=== PATIENT | male | born 1950 | race Caucasian/White ===

== ENCOUNTER → 2017-05-13 | Outpatient (CLI) | payer MEDICARE, OTHER ==
[2017-05-13 12:35] LABS: ALT 102 U/L (21-72); AST 114 U/L (17-59); Alkaline Phosphatase 77 U/L (38-126); Anion Gap 13 mmol/L; Bilirubin, Delta 1.3 mg/dL (0.0-0.2); Blood Urea Nitrogen 15 mg/dL (9-20); Calcium 9.7 mg/dL (8.4-10.2); Carbon Dioxide 22 mmol/L (22-30); Chloride 108 mmol/L (98-107); Cholesterol 170 mg/dL (<200); Glucose 111 mg/dL (74-99); HDL Cholesterol 44 mg/dL (40-60); Non-African American GFR(MDRD) >60 (>60 ml/min/1.73 sqM); Sodium 143 mmol/L (137-145); Total Bilirubin 2.3 mg/dL (0.2-1.3); Total Protein 9.2 g/dL (6.3-8.2)
[2017-05-13 12:38] LABS: Basophils # (A) 0.1 k/uL (0-0.2); Basophils % (A) 1 %; CHCM 33.6; Eosinophils # (A) 0.2 k/uL (0-0.7); Eosinophils % (A) 5 %; HCT 50.7 % (39.0-53.0); HDW 2.57; HGB 16.8 gm/dL (13.0-17.5); Luc # (Auto) 0.17; Luc % (Auto) 4; Lymphocytes # (A) 1.8 k/uL (1.0-4.8); Lymphocytes % (A) 42 %; MCH 30.7 pg (25.0-35.0); MCHC 33.1 g/dL (31.0-37.0); MCV 92.8 fL (80.0-100.0); Mean Platelet Volume 7.3; Monocytes # (A) 0.3 k/uL (0-1.0); Monocytes % (A) 8 %; Neutrophils # (A) 1.8 k/uL (1.3-7.7); Neutrophils % (A) 40 %; RBC 5.46 m/uL (4.30-5.90); RDW 12.8 % (11.5-15.5); WBC 4.3 k/uL (3.8-10.6); WBC (Perox) 4.25
[2017-05-13 12:40] LABS: Potassium 5.1 mmol/L (3.5-5.1)
[2017-05-16 13:41] LABS: LOG HCV IU/mL 6.64 (<1.08)
== END | disposition home or self-care (01) ==
LOC: LABWHC1 11:21
PROVIDERS: ATTEND Physician Assistant
DX: B18.2 Chronic viral hepatitis C (principal)
CPT/HCPCS: 36415; 80053; 80061; 82248; 85025; 87522

== ENCOUNTER → 2017-07-11 | Outpatient (CLI) | payer MEDICARE, OTHER ==
--- NOTE | 2017-07-11 14:59 | US ---
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 gen abd discomfort at times, larger habitus EXAM MEASUREMENTS: Liver Length: 15.2 cm CBD: 1.8 cm Right Kidney: 11.5 x 4.3 x 5.3 cm Some exam limitations due to larger habitus and overlying bowel gas. Pancreas: diffusely heterogeneous, limited due to overlying bowel gas Liver: Increased attenuation normal hepatopedal blood flow seen. Gallbladder: Surgically absent CBD: dilated, extrahep shukri dilation Right Kidney: wnl Pancreas is suboptimally seen due to body habitus and shadowing from overlying bowel gas, visualized portion is heterogeneous. Visualized liver remains slightly heterogeneous slightly hyperechoic in marco earance. Evaluation for focal masses suboptimal due to the heterogeneity. No intrahepatic ductal dila tation is seen. There is stable moderate extrahepatic biliary dilatation. Gallbladder surgically abse nt. Pancreas is seen better towards end of study. No suspicious ductal dilatation is seen. IMPRESSION: Overall stable findings, persistent heterogeneous hyperechoic appearance of liver likely on basis of known hepatocellular disease. Stable moderate extrahepatic biliary dilatation without ericka picious new intrahepatic biliary dilatation noted.
== END ==
LOC: RADUSWWP 14:00
DX: K76.89 Other specified diseases of liver (principal)
CPT/HCPCS: 76705

== ENCOUNTER → 2017-10-14 | Outpatient (CLI) | payer MEDICARE, OTHER ==
--- NOTE | 2017-10-16 12:58 | MR ---
EXAMINATION TYPE: MR lumbar spine wo con DATE OF EXAM: 10/14/2017 COMPARISON: Prior MRI lumbar spine August 27, 2010. HISTORY: Low Back pain, Spondylosis without myelopathy or radiculopathy per order. Low back pain for 10 years per patient. TECHNIQUE: Multiplanar, multisequence imaging of the lumbar spine is performed without IV contrast. FINDINGS: Sagittal images of the lumbar spine show vertebral body heights and alignment to appear sat isfactory. Multilevel disc desiccation is redemonstrated most prominent in lower lumbar levels. There is mild disc space L4-L5 level as well as disc space heights are fairly well-maintained. No large po sterior disc herniations are seen on sagittal images. The conus medullaris is stable in position end ing at superior L2 level. Through suspicious signal is seen. The bone marrow signal intensity remains overall slightly heterogeneous. There is mild to moderate multilevel anterior spurring seen most pro minent lower lumbar levels. Axial images show the T12-L1, L1-L2, and L2-L3 levels all to remain within normal limits. Axial images at L3-L4 level demonstrates mild broad disc bulge but spinal canal is preserved, there i s mild right-sided anterior inferior neuroforaminal narrowing. Left-sided neural foramen is patent. N o significant change from prior study is seen. Axial images at L4-L5 levels with broad-based posterior disc protrusion mildly effacing the anterior thecal sac and causing mild right greater than left bilateral anterior inferior neural foraminal narr owing. There is mild facet arthropathy bilaterally. There is no significant progression from prior st udy. Axial images at L5-S1 level shows moderate facet degenerative changes bilaterally. Spinal canal is pr eserved. Bilateral neural foramina remain patent. There is more prominent facet arthropathy at this l evel versus prior study. No suspicious retroperitoneal findings are seen. IMPRESSION: Multilevel degenerative changes in the mid to lower lumbar spine as detailed above, only significant interval change is increasing facet arthropathy at lumbosacral junction.
== END | disposition home or self-care (01) ==
LOC: RADMRIMAIN 16:26
PROVIDERS: ATTEND Specialist
DX: M47.816 Spondylosis without myelopathy or radiculopathy, lumbar region (principal); M46.97 Unspecified inflammatory spondylopathy, lumbosacral region
CPT/HCPCS: 72148

== ENCOUNTER → 2017-10-27 | Outpatient (CLI) | payer MEDICARE, OTHER ==
[2017-10-27 12:29] VITALS: BP 162/105; PULSE 67; RESP 16
--- NOTE | 2017-10-28 13:25 | P.PN ---
Subjective Progress Note Date: 10/27/17 This is follow-up visit for this patient with a history of severe and chronic low back pain , he was seen a few weeks ago and we ordered MRI of the lumbar spine and patient came for follow up visit, he reported that his pain is localized mostly in the low back area and he had some pain in the mid back also , pain is constant and increases with any activity , denies any motor or sensory deficit he denies any fever or night sweats he denies any change in the bowel movement or urination , MRI report was reviewed and it showed patient had L3 4 L4 5 and L5-S1 Degenrative disc disease and multilevel lumbar facet degeneration Objective - Vital Signs Vital signs: Vital Signs Temp Pulse 67 10/27/17 12:21 Resp 16 10/27/17 12:21 BP 162/105 10/27/17 12:21 Pulse Ox 98 10/27/17 12:21 Intake & Output 10/27/17 10/28/17 10/28/17 18:59 06:59 18:59 Weight 104.326 kg - Exam Physical Examinations : 1-Constitutiona : Cooperative , not in acute distress . 2-HEENT : nech ; supple , no Lymphadenopathy , normal thyroid size . eyes : no ptosis , no icterus, no photophobia . ENT : normal of hearing , normal oropharynx , no Thrush . 3- Respiratory : Chest clear to auscultations Bilaterally , no wheezing , no Rhonchi . 4- Cardiovascular : regular rate and rhythem , S1 , S2 , no S3 , no S4. 5- Gastrointestinal : abdomen soft no tenderness , bowel sounds positive all four quadrents , no organomegally . 6- Genitourinary : Defferred . 7- neurologic : Cranial nerve II to XII intact , no focal neurological deffecit . 8-psychatric : alert , oriented X 3 , appropriate affect , intact judgment and insight . 9-Lymphatic : no Lymphadenopathy . 10- musculoskeltal : cervical spine = motor stregnth in the deltoid and biceps, Lasix spine = total trigger point identified in the thoracic paravertebral muscles . Lumber spine = normal moter stegnth lower extremities ,thigh and legs .5/5 deep tendon reflexes : normal Knee Jerk , normal ankle Jerk . lumber facet Loading Test positive Multiple trigger points identified in the lumbar paravertebral muscles Assessment and Plan Plan: Assessment and plan= chronic low back pain secondary to lumbar degenerative disc disease , lumbar spondylosis with lumbar facet arthropathy , myofascial pain syndrome thoracic and lumbar area Patient was given prescription for a muscle relaxant Zanaflex 4 mg twice a day and Mobic 7.5 mg twice a day , he refused to take these medication he reported that he preferred to have norco , and I explained to the patient that Howe with muscular pain and it will not treat the cause of the pain, he refused to take the prescriptions for the medications mentioned above. Also I explained to the patient the option of doing diagnostic medial branch block and possible radiofrequency patient refused to have, as he is concerned about possible complications , also I discussed with the patient the option of doing trigger point injection, to target the myofascial component of his thoracic and lumbar area and he agreed to proceed with the trigger point injections, patient will be scheduled to have trigger points injections thoracic and lumbar paravertebral muscles Time with Patient: Less than 30
== END | disposition home or self-care (01) ==
LOC: PNWHC3 12:09
PROVIDERS: ATTEND Specialist
DX: G89.29 Other chronic pain (principal); M51.36 Other intervertebral disc degeneration, lumbar region; M47.816 Spondylosis without myelopathy or radiculopathy, lumbar region; M46.96 Unspecified inflammatory spondylopathy, lumbar region; M79.1 Myalgia; Z79.1 Long term (current) use of non-steroidal anti-inflammatories (NSAID); Z79.899 Other long term (current) drug therapy
CPT/HCPCS: 99211

== ENCOUNTER → 2017-10-28 | Outpatient (CLI) | payer MEDICARE, OTHER ==
[2017-10-28 14:46] LABS: HCT 46.8 % (39.0-53.0); HGB 15.2 gm/dL (13.0-17.5); MCH 30.4 pg (25.0-35.0); MCHC 32.5 g/dL (31.0-37.0); MCV 93.5 fL (80.0-100.0); Mean Platelet Volume 7.8; Platelet Count 207 k/uL (150-450); RDW 13.6 % (11.5-15.5); WBC 5.5 k/uL (3.8-10.6)
[2017-10-28 14:49] LABS: ALT 32 U/L (21-72); AST 25 U/L (17-59); Albumin 4.8 g/dL (3.5-5.0); Alkaline Phosphatase 59 U/L (38-126); Anion Gap 14 mmol/L; Bilirubin, Delta 0.3 mg/dL (0.0-0.2); Bilirubin,Unconjugated 0.3 mg/dL (0.0-1.1); Blood Urea Nitrogen 20 mg/dL (9-20); Calcium 9.7 mg/dL (8.4-10.2); Carbon Dioxide 22 mmol/L (22-30); Chloride 106 mmol/L (98-107); Glucose 119 mg/dL (74-99); Potassium 4.3 mmol/L (3.5-5.1); Sodium 142 mmol/L (137-145); Total Bilirubin 0.6 mg/dL (0.2-1.3); Total Protein 7.9 g/dL (6.3-8.2)
[2017-10-28 16:41] LABS: Band Neutrophils % 2 %; Eosinophils # (M) 0.11 k/uL (0-0.7); Lymphocytes # (M) 2.09 k/uL (1.0-4.8); Monocytes # (M) 0.17 k/uL (0-1.0); Neutrophils % (M) 55 %; Nucleated Red Blood Cells 0 /100 WBC (0-0); Total Cells Counted 100
[2017-10-31 11:02] LABS: Hepatits C Virus RNA Not detected (Not detected); Hepatits C Virus RNA, Quant <12 IU/mL (<12); LOG HCV IU/mL <1.08 (<1.08)
== END | disposition home or self-care (01) ==
LOC: LABWHC1 14:13
PROVIDERS: ATTEND Physician Assistant
DX: B18.2 Chronic viral hepatitis C (principal); I10 Essential (primary) hypertension
CPT/HCPCS: 36415; 80053; 82248; 85027; 87522

== ENCOUNTER 2017-11-24 22:04 | Emergency (ER) | payer MEDICARE, OTHER ==
[2017-11-24 22:12] VITALS: BP 157/88; PULSE 69; RESP 20; TEMP 98.3
--- NOTE | 2017-11-24 22:28 | ED ---
Lower Extremity Injury HPI - General Chief Complaint: Extremity Injury, Lower Stated Complaint: Foot Pain Time Seen by Provider: 11/24/17 22:12 Source: patient, RN notes reviewed, old records reviewed Mode of arrival: wheelchair Limitations: no limitations - History of Present Illness Initial Comments: This patient is a 67-year-old male with a chief complaint of left foot and ankle pain after slipping off ladder step and twisting foot today. Patient reports it is painful to bear weight over leg. Patent reports he has no previous injury to the foot or ankle. No other injury related to the fall. Patient reports no head injury or LOC. - Related Data Home Medications Medication Instructions Recorded Confirmed Lisinopril 40 mg PO DAILY 09/13/16 11/24/17 Metoprolol Tartrate [Lopressor] 50 mg PO DAILY 09/13/16 11/24/17 amLODIPine [Norvasc] 5 mg PO DAILY 09/13/16 11/24/17 Zolpidem Tartrate [Ambien] 5 mg PO HS PRN 09/14/17 11/24/17 Previous Rx's Medication Instructions Recorded Ibuprofen [Motrin] 600 mg PO Q8HR PRN #20 tab 11/24/17 Allergies Allergy/AdvReac Type Severity Reaction Status Date / Time No Known Allergies Allergy Verified 11/24/17 22:11 Review of Systems ROS Statement: Those systems with pertinent positive or pertinent negative responses have been documented in the HPI. ROS Other: All systems not noted in ROS Statement are negative. Past Medical History Past Medical History: Hypertension, Liver Disease Additional Past Medical History / Comment(s): Hepatits B & C(current tx for C) , hx migraines, herniated and ruptured disks, History of Any Multi-Drug Resistant Organisms: None Reported Past Surgical History: Cholecystectomy Past Anesthesia/Blood Transfusion Reactions: No Reported Reaction Past Psychological History: No Psychological Hx Reported Smoking Status: Current every day smoker Past Alcohol Use History: None Reported Past Drug Use History: None Reported - Past Family History Mother Family Medical History: No Reported History General Exam - General Exam Comments Initial Comments: This is a 67 year old male, no distress. Limitations: no limitations General appearance: alert, in no apparent distress Head exam: Present: atraumatic, normocephalic, normal inspection Eye exam: Present: normal appearance, PERRL, EOMI. Absent: scleral icterus, conjunctival injection, periorbital swelling ENT exam: Present: normal exam, mucous membranes moist Neck exam: Present: normal inspection. Absent: tenderness, meningismus, lymphadenopathy Respiratory exam: Present: normal lung sounds bilaterally. Absent: respiratory distress, wheezes, rales, rhonchi, stridor GI/Abdominal exam: Present: soft, normal bowel sounds. Absent: distended, tenderness, guarding, rebound, rigid Extremities exam: Present: normal inspection, full ROM, normal capillary refill. Absent: tenderness, pedal edema, joint swelling, calf tenderness Left Knee exam: Present: normal inspection, full ROM Lower Leg exam: Present: normal inspection, full ROM Ankle exam: Present: normal inspection, full ROM, tenderness (tenderness over fourth adn fifth metatarsal. ), swelling Foot/Toe exam: Present: normal inspection, full ROM, tenderness, ecchymosis. Absent: swelling Neurovascular tendon exam: Present: no vascular compromise Gait: observed and normal Back exam: Present: normal inspection Neurological exam: Present: alert, oriented X3, CN II-XII intact Psychiatric exam: Present: normal affect, normal mood Skin exam: Present: warm, dry, intact, normal color. Absent: rash Course Vital Signs 11/24/17 22:09 Temperature 98.3 F Pulse Rate 69 Respiratory 20 Rate Blood Pressure 157/88 O2 Sat by Pulse 96 Oximetry Medical Decision Making - Medical Decision Making This is a 67-year-old male presents emergency department with after stepping down the steps. No other injuries related to the fall. Patient x-rays review negative for any acute process. He does have some minor swelling and tenderness. Given an VELASQUEZ wrap. He will be discharged the crutches. All questions were answered and return parameters discussed. Discussed followuing up with PCP and ortho. - Radiology Data Radiology results: report reviewed xray of foot and ankle are negative for any fractures. Disposition Clinical Impression: Sprain of left foot, Ankle sprain Disposition: HOME SELF-CARE Condition: Good Instructions: Ankle Sprain (ED) Additional Instructions: Patient advised to rest, ice, and elevate the ankle. Wear the Velasquez wrap as directed. Patient should ambulate with crutches. Follow-up with primary care provider or orthopedic if symptoms are continued persist after 3-4 days. Prescriptions: Ibuprofen [Motrin] 600 mg PO Q8HR PRN #20 tab PRN Reason: Pain Referrals: Munira Mcelroy MD [Primary Care Provider] - 1-2 days Time of Disposition: 22:40
--- NOTE | 2017-11-24 22:30 | XR ---
EXAMINATION TYPE: XR ankle complete LT DATE OF EXAM: 11/24/2017 COMPARISON: NONE HISTORY: Twisted foot pain TECHNIQUE: 3 views FINDINGS: Ankle mortise is anatomic. I see no fracture nor dislocation. There is mild spurring at the talonavicular joint. There are small plantar and Achilles calcaneal spurs. IMPRESSION: There are some degenerative changes. No fracture seen.
--- NOTE | 2017-11-24 22:32 | XR ---
EXAMINATION TYPE: XR foot complete LT DATE OF EXAM: 11/24/2017 COMPARISON: NONE HISTORY: Foot pain TECHNIQUE: 3 views FINDINGS: Metatarsals appear intact. I see no fracture nor dislocation. There is mild calcaneal spurr ing. There are no erosions. IMPRESSION: No acute abnormality of the left foot.
== END 2017-11-24 23:02 | disposition home or self-care (01) ==
LOC: EC 22:04
DX: S93.402A Sprain of unspecified ligament of left ankle, initial encounter (principal); S93.602A Unspecified sprain of left foot, initial encounter; I10 Essential (primary) hypertension; F17.200 Nicotine dependence, unspecified, uncomplicated; Z86.19 Personal history of other infectious and parasitic diseases; Z79.899 Other long term (current) drug therapy; X50.1XXA Overexertion from prolonged static or awkward postures, initial encounter; Y92.89 Other specified places as the place of occurrence of the external cause
CPT/HCPCS: 99284

== ENCOUNTER → 2018-03-17 | Outpatient (CLI) | payer MEDICARE, OTHER ==
[2018-03-17 14:26] LABS: Basophils % (A) 1 %; Eosinophils # (A) 0.4 k/uL (0-0.7); Eosinophils % (A) 9 %; HGB 14.4 gm/dL (13.0-17.5); Lymphocytes # (A) 1.6 k/uL (1.0-4.8); Lymphocytes % (A) 35 %; MCH 30.3 pg (25.0-35.0); MCHC 33.5 g/dL (31.0-37.0); MCV 90.4 fL (80.0-100.0); Mean Platelet Volume 7.2; Monocytes # (A) 0.3 k/uL (0-1.0); Monocytes % (A) 8 %; Neutrophils # (A) 1.9 k/uL (1.3-7.7); Neutrophils % (A) 43 %; Platelet Count 195 k/uL (150-450); RBC 4.76 m/uL (4.30-5.90); RDW 13.1 % (11.5-15.5); WBC 4.5 k/uL (3.8-10.6)
[2018-03-17 14:36] LABS: ALT 33 U/L (21-72); AST 31 U/L (17-59); Albumin 4.5 g/dL (3.5-5.0); Alkaline Phosphatase 65 U/L (38-126); Anion Gap 12 mmol/L; Blood Urea Nitrogen 30 mg/dL (9-20); Calcium 9.3 mg/dL (8.4-10.2); Carbon Dioxide 27 mmol/L (22-30); Chloride 100 mmol/L (98-107); Cholesterol 139 mg/dL (<200); Glucose 104 mg/dL (74-99); HDL Cholesterol 43 mg/dL (40-60); LDL Cholesterol,Calculated 83 mg/dL (0-99); Potassium 4.7 mmol/L (3.5-5.1); Sodium 139 mmol/L (137-145); Total Bilirubin 0.7 mg/dL (0.2-1.3); Total Protein 7.3 g/dL (6.3-8.2); Triglycerides 66 mg/dL (<150)
[2018-03-17 15:06] LABS: PSA Annual Screen 0.92 ng/mL (0.00-4.00)
== END | disposition home or self-care (01) ==
LOC: LABWHC1 13:37
PROVIDERS: ATTEND Internal Medicine
DX: B19.20 Unspecified viral hepatitis C without hepatic coma (principal); I10 Essential (primary) hypertension; M25.50 Pain in unspecified joint; Z12.5 Encounter for screening for malignant neoplasm of prostate
CPT/HCPCS: 80061; 80053; 84443; 84550; 85025; 36415; G0103

== ENCOUNTER → 2018-04-27 | Outpatient (CLI) | payer MEDICARE, OTHER ==
--- NOTE | 2018-04-27 09:09 | MR ---
MR thoracic spine HISTORY: Pain Multiplanar multisequence imaging through the thoracic spine No comparisons Thoracic vertebral bodies show preserved height and alignment. There is multilevel spondylosis with e ndplate discogenic marrow signal change. T10 vertebral body shows a focus of increased signal on T1 a nd T2-weighted sequences compatible with hemangioma. There is multilevel facet arthropathy present ca using some contact with the posterior thecal sac especially at the lower levels. No significant spina l stenosis or sizable disc herniation is evident. No definite foraminal encroachments. Thoracic cord signal is normal. Possible scoliosis in the upper thoracic spine. IMPRESSION: Degenerative disc disease and facet arthropathy. Spinal curvature.
== END | disposition home or self-care (01) ==
LOC: RADMRIMAIN 07:40
PROVIDERS: ATTEND Internal Medicine
DX: M51.34 Other intervertebral disc degeneration, thoracic region (principal); M46.84 Other specified inflammatory spondylopathies, thoracic region; M43.8X4 Other specified deforming dorsopathies, thoracic region
CPT/HCPCS: 72146

== ENCOUNTER → 2018-09-15 | Outpatient (CLI) | payer MEDICARE, OTHER ==
[2018-09-15 11:30] LABS: Basophils % (A) 1 %; Eosinophils # (A) 0.2 k/uL (0-0.7); Eosinophils % (A) 3 %; HCT 43.4 % (39.0-53.0); HGB 14.5 gm/dL (13.0-17.5); Lymphocytes # (A) 1.6 k/uL (1.0-4.8); Lymphocytes % (A) 28 %; MCH 30.8 pg (25.0-35.0); MCHC 33.5 g/dL (31.0-37.0); Mean Platelet Volume 7.7; Monocytes # (A) 0.5 k/uL (0-1.0); Monocytes % (A) 8 %; Neutrophils # (A) 3.4 k/uL (1.3-7.7); Neutrophils % (A) 58 %; Platelet Count 200 k/uL (150-450); RBC 4.71 m/uL (4.30-5.90); RDW 12.7 % (11.5-15.5); WBC 5.8 k/uL (3.8-10.6)
[2018-09-15 17:28] LABS: Albumin 4.7 g/dL (3.80-4.90); Albumin/Globulin Ratio 2.04 (1.20-2.10); Anion Gap 10.4 mmol/L (4.00-12.00); Bilirubin, Conjugated 0.2 mg/dL (0.20-0.40); Bilirubin,Unconjugated 0.3 mg/dL; Calcium 9.3 mg/dL (8.7-10.3); Carbon Dioxide 22.6 mmol/L (21.6-31.8); Globulin 2.3 g/dL (2.1-3.7); Potassium 4.3 mmol/L (3.5-5.5); Total Bilirubin 0.5 mg/dL (0.2-1.2)
[2018-09-18 10:00] LABS: Hepatits C Virus RNA Not detected (Not detected); Hepatits C Virus RNA, Quant <12 IU/mL (<12); LOG HCV IU/mL <1.08 (<1.08)
== END | disposition home or self-care (01) ==
LOC: LABWHC1 10:04
PROVIDERS: ATTEND Physician Assistant
DX: I10 Essential (primary) hypertension (principal); R53.83 Other fatigue; M51.36 Other intervertebral disc degeneration, lumbar region; M51.34 Other intervertebral disc degeneration, thoracic region
CPT/HCPCS: 36415; 80053; 80061; 82248; 84443; 85025; 87522

== ENCOUNTER → 2018-12-04 | Outpatient (CLI) | payer MEDICARE, OTHER ==
[2018-12-04 14:09] LABS: Basophils % (A) 1 %; Eosinophils # (A) 0.2 k/uL (0-0.7); Eosinophils % (A) 4 %; HCT 51.5 % (39.0-53.0); HGB 17.3 gm/dL (13.0-17.5); Lymphocytes # (A) 1.3 k/uL (1.0-4.8); Lymphocytes % (A) 31 %; MCH 31.2 pg (25.0-35.0); MCHC 33.6 g/dL (31.0-37.0); MCV 92.6 fL (80.0-100.0); Mean Platelet Volume 7.1; Monocytes # (A) 0.5 k/uL (0-1.0); Monocytes % (A) 12 %; Neutrophils # (A) 2.1 k/uL (1.3-7.7); Neutrophils % (A) 50 %; Platelet Count 142 k/uL (150-450); RBC 5.56 m/uL (4.30-5.90); RDW 12.8 % (11.5-15.5); WBC 4.2 k/uL (3.8-10.6)
[2018-12-04 18:52] LABS: Albumin 5.3 g/dL (3.80-4.90); Albumin/Globulin Ratio 1.83 (1.60-3.17); Anion Gap 13.8 mmol/L (4.00-12.00); Carbon Dioxide 20.2 mmol/L (21.6-31.8); Globulin 2.9 g/dL (1.6-3.3); LDL Cholesterol,Calculated 125.8 mg/dL (0.0-131.0); Total Bilirubin 1.3 mg/dL (0.3-1.2); Total Protein 8.2 g/dL (6.2-8.2); VLDL Calculation 29.2 mg/dL (5.00-40.00)
== END | disposition home or self-care (01) ==
LOC: LABWHC1 12:34
PROVIDERS: ATTEND Internal Medicine
DX: E55.9 Vitamin D deficiency, unspecified (principal); R53.83 Other fatigue
CPT/HCPCS: 36415; 80053; 80061; 82306; 84443; 85025

== ENCOUNTER → 2019-03-17 | Outpatient (CLI) | payer MEDICARE, OTHER ==
[2019-03-17 11:37] LABS: Basophils % (A) 1 %; Eosinophils # (A) 0.1 k/uL (0-0.7); Eosinophils % (A) 3 %; HCT 43.5 % (39.0-53.0); HGB 14.7 gm/dL (13.0-17.5); Lymphocytes # (A) 1.8 k/uL (1.0-4.8); Lymphocytes % (A) 38 %; MCH 29.9 pg (25.0-35.0); MCHC 33.9 g/dL (31.0-37.0); MCV 88.1 fL (80.0-100.0); Mean Platelet Volume 7.9; Monocytes # (A) 0.4 k/uL (0-1.0); Monocytes % (A) 9 %; Neutrophils # (A) 2.3 k/uL (1.3-7.7); Neutrophils % (A) 48 %; Platelet Count 246 k/uL (150-450); RBC 4.93 m/uL (4.30-5.90); RDW 13.1 % (11.5-15.5); WBC 4.8 k/uL (3.8-10.6)
[2019-03-17 17:05] LABS: Albumin/Globulin Ratio 1.79 (1.60-3.17); Anion Gap 13.3 mmol/L (4.00-12.00); Calcium 9.8 mg/dL (8.7-10.3); Carbon Dioxide 23.7 mmol/L (21.6-31.8); Globulin 2.8 g/dL (1.6-3.3); Potassium 4.5 mmol/L (3.5-5.5); Total Bilirubin 1.1 mg/dL (0.2-1.2); Total Protein 7.8 g/dL (6.2-8.2)
== END | disposition home or self-care (01) ==
LOC: LABWHC1 09:48
PROVIDERS: ATTEND Internal Medicine
DX: R53.83 Other fatigue (principal); I10 Essential (primary) hypertension; I82.411 Acute embolism and thrombosis of right femoral vein; Z13.6 Encounter for screening for cardiovascular disorders; Z12.5 Encounter for screening for malignant neoplasm of prostate
CPT/HCPCS: 36415; 80053; 80061; 84153; 84443; 85025

== ENCOUNTER → 2019-08-17 | Day surgery (SDC) | payer MEDICARE, OTHER ==
[2019-08-15 14:40] VITALS: BMI 29.5
== END ==
LOC: EDSTATUS 07:30 → CATHCVL 08:58
PROVIDERS: ATTEND Internal Medicine Hematology & Oncology
DX: I26.99 Other pulmonary embolism without acute cor pulmonale (principal); M19.90 Unspecified osteoarthritis, unspecified site
CPT/HCPCS: 36410; 76937; 82565; 84520

== ENCOUNTER → 2019-08-20 | Day surgery (SDC) | payer MEDICARE, OTHER ==
[2019-08-20 10:14] VITALS: BP 120/80; PULSE 84; RESP 16; TEMP 98.2
--- NOTE | 2019-08-20 11:03 | CT ---
EXAMINATION TYPE: CT angio chest DATE OF EXAM: 08/20/2019 COMPARISON: None HISTORY: Pulmonary Embolism CT DLP: 548.2 mGycm CONTRAST: CT chest with contrast and 3D reconstruction with MIP imaging is performed with IV Contrast, patient injected with 100 mL of Isovue 370. Contrast-enhanced CT of the chest was performed through the course of the pulmonary arteries with edward g and mediastinal window settings submitted. 3D reconstruction with MIP imaging was also performed. PULMONARY ARTERIES: The pulmonary arteries and their major tributaries are patent. Scattered areas o f parenchymal scarring noted. I do not see evidence for sizable filling defect to suggest pulmonary e mbolic process. LUNGS: The lungs are clear and free of infiltrate. No evidence for atelectasis. No pulmonary nodule or mass is detected. No pleural effusion. MEDIASTINUM: Thoracic aorta is of normal caliber,however, evaluation is limited given timing of the contrast bolus. If there is concern for thoracic aortic pathology consider ISABEL. Correlate clinicall y . The heart is not enlarged. No evidence for mediastinal mass. No mediastinal lymph nodes greater than 1cm. HILAR STRUCTURES: No evidence for mass. No hilar lymph nodes greater than 1 cm. UPPER ABDOMEN: No significant abnormality is seen. IMPRESSION: 1. No evidence for Pulmonary embolism at this time.
== END ==
LOC: CATHCVL 09:59 → EDSTATUS 11:00
PROVIDERS: ATTEND Internal Medicine Hematology & Oncology
DX: I26.99 Other pulmonary embolism without acute cor pulmonale (principal)
CPT/HCPCS: 36410; 76937; 71275; Q9967

== ENCOUNTER → 2020-05-05 | Outpatient (CLI) | payer MEDICARE, OTHER ==
[2020-05-05 14:17] LABS: Basophils # (A) 0.1 k/uL (0-0.2); Basophils % (A) 1 %; Eosinophils # (A) 0.2 k/uL (0-0.7); Eosinophils % (A) 4 %; HCT 43.9 % (39.0-53.0); HGB 15.1 gm/dL (13.0-17.5); Lymphocytes # (A) 1.4 k/uL (1.0-4.8); Lymphocytes % (A) 30 %; MCH 31.6 pg (25.0-35.0); MCHC 34.3 g/dL (31.0-37.0); MCV 92.1 fL (80.0-100.0); Mean Platelet Volume 8.9; Monocytes # (A) 0.5 k/uL (0-1.0); Monocytes % (A) 11 %; Neutrophils # (A) 2.4 k/uL (1.3-7.7); Neutrophils % (A) 52 %; Platelet Count 230 k/uL (150-450); RBC 4.77 m/uL (4.30-5.90); RDW 12.9 % (11.5-15.5); WBC 4.6 k/uL (3.8-10.6)
[2020-05-05 20:03] LABS: Hemoglobin A1C 5.1 % (4.0-6.0)
[2020-05-05 21:36] LABS: African American GFR (CKD) 80.1 (60.0-200.0); Albumin 4.8 g/dL (3.80-4.90); Albumin/Globulin Ratio 1.71 (1.60-3.17); Anion Gap 12.6 mmol/L (4.00-12.00); Calcium 9.5 mg/dL (8.7-10.3); Carbon Dioxide 19.4 mmol/L (21.6-31.8); Chol/HDL Ratio 3.91; Globulin 2.8 g/dL (1.6-3.3); Non-African American GFR(CKD) 69.1 (60.0-200.0); Potassium 4.3 mmol/L (3.5-5.5); Total Bilirubin 0.9 mg/dL (0.2-1.2); Total Protein 7.6 g/dL (6.2-8.2)
[2020-05-05 21:47] LABS: PSA Annual Screen 0.5 ng/mL (0.0-4.0)
== END | disposition home or self-care (01) ==
LOC: LABWHC1 11:03
PROVIDERS: ATTEND Internal Medicine
DX: E55.9 Vitamin D deficiency, unspecified (principal); R53.83 Other fatigue; Z12.5 Encounter for screening for malignant neoplasm of prostate; I10 Essential (primary) hypertension; Z79.899 Other long term (current) drug therapy
CPT/HCPCS: 80061; 80053; 84443; 85025; 82306; 83036; 36415; G0103

== ENCOUNTER → 2020-06-12 | Outpatient (CLI) | payer MEDICARE, OTHER ==
--- NOTE | 2020-06-12 15:47 | XR ---
EXAMINATION TYPE: XR chest 2V DATE OF EXAM: 06/12/2020 COMPARISON: Prior chest x-ray 08/12/2009, CT 08/20/2019 HISTORY: Shortness of breath and dyspnea TECHNIQUE: Frontal and lateral views of the chest are obtained. FINDINGS: There is no focal air space opacity, pleural effusion, or pneumothorax seen. The cardiac silhouette size is within normal limits. Prominent lung volume may be consistent with underlying CO PD, mild emphysematous change noted on prior CT. The osseous structures are intact. IMPRESSION: No acute cardiopulmonary process.
== END | disposition home or self-care (01) ==
LOC: RADXRMAIN 13:24
PROVIDERS: ATTEND Internal Medicine
DX: R06.00 Dyspnea, unspecified (principal)
CPT/HCPCS: 71046

== ENCOUNTER → 2020-08-04 | Outpatient (CLI) | payer MEDICARE, OTHER ==
[2020-08-04 13:20] LABS: Basophils % (A) 1 %; Eosinophils # (A) 0.2 k/uL (0-0.7); Eosinophils % (A) 4 %; HCT 48.4 % (39.0-53.0); HGB 15.6 gm/dL (13.0-17.5); Lymphocytes # (A) 1.6 k/uL (1.0-4.8); Lymphocytes % (A) 32 %; MCH 30.4 pg (25.0-35.0); MCHC 32.4 g/dL (31.0-37.0); MCV 94.1 fL (80.0-100.0); Mean Platelet Volume 7.8; Monocytes # (A) 0.4 k/uL (0-1.0); Monocytes % (A) 8 %; Neutrophils # (A) 2.7 k/uL (1.3-7.7); Neutrophils % (A) 54 %; Platelet Count 271 k/uL (150-450); RBC 5.14 m/uL (4.30-5.90); RDW 13.1 % (11.5-15.5); WBC 4.9 k/uL (3.8-10.6)
[2020-08-04 19:28] LABS: African American GFR (CKD) 79.5 (60.0-200.0); Albumin 4.8 g/dL (3.80-4.90); Albumin/Globulin Ratio 1.71 (1.60-3.17); Anion Gap 11.2 mmol/L (4.00-12.00); BUN/Creat Ratio 12.73 Ratio (12.00-20.00); Calcium 9.7 mg/dL (8.7-10.3); Carbon Dioxide 22.8 mmol/L (21.6-31.8); Chol/HDL Ratio 4.02; Globulin 2.8 g/dL (1.6-3.3); LDL Cholesterol,Calculated 111.2 mg/dL (0.0-131.0); Non-African American GFR(CKD) 68.6 (60.0-200.0); Total Protein 7.6 g/dL (6.2-8.2); VLDL Calculation 15.8 mg/dL (5.00-40.00)
[2020-08-04 19:37] LABS: Prostate Specific Antigen 0.8 ng/mL (0.0-4.5)
== END | disposition home or self-care (01) ==
LOC: LABWHC1 11:10
PROVIDERS: ATTEND Internal Medicine
DX: I10 Essential (primary) hypertension (principal); I82.411 Acute embolism and thrombosis of right femoral vein; R53.83 Other fatigue; Z13.6 Encounter for screening for cardiovascular disorders; Z12.5 Encounter for screening for malignant neoplasm of prostate
CPT/HCPCS: 36415; 80053; 80061; 84153; 84443; 85025

== ENCOUNTER → 2021-07-02 | Outpatient (CLI) | payer MEDICARE, OTHER ==
--- NOTE | 2021-07-03 04:18 | MR ---
EXAMINATION TYPE: MR shoulder LT wo con DATE OF EXAM: 07/02/2021 COMPARISON: None HISTORY: Left shoulder pain, decreased ROM x 1-2 yrs. Multiplanar multiecho imaging of the left shoulder without contrast. The supraspinatus tendon appears intact. AC joint is intact. I see no subacromial impingement. The biceps tendon is intact. There is slight increased joint fluid. The subscapularis tendon is intac t. There is fluid around the subscapularis tendon. I see no focal bone destruction. The glenoid vianney appear intact. IMPRESSION: No evidence of rotator cuff tear. There is increased joint fluid consistent with some nonspecific syn ovitis.
== END | disposition home or self-care (01) ==
LOC: RADMRIMAIN 15:13
PROVIDERS: ATTEND Internal Medicine
DX: M25.512 Pain in left shoulder (principal)

== ENCOUNTER → 2022-04-14 | Outpatient (CLI) | payer MEDICARE, OTHER ==
--- NOTE | 2022-04-14 12:39 | XR ---
EXAMINATION TYPE: XR chest 2V DATE OF EXAM: 04/14/2022 COMPARISON: Chest x-ray 06/12/2020 CT chest 08/20/2019 HISTORY: Shortness of breath, R06.02 TECHNIQUE: Frontal and lateral views of the chest are obtained. FINDINGS: Patient is rotated. Aorta is dense. Prominent lung volume is consistent with underlying WATER MANAGER D. There is no focal air space opacity, pleural effusion, or pneumothorax seen. The cardiac silhouet te size is within normal limits. The osseous structures are intact. IMPRESSION: No acute cardiopulmonary process. Emphysema.
== END | disposition home or self-care (01) ==
LOC: RADXRMAIN 11:46
PROVIDERS: ATTEND Internal Medicine
DX: J43.9 Emphysema, unspecified (principal)
CPT/HCPCS: 71046

== ENCOUNTER → 2022-08-13 | Outpatient (CLI) | payer MEDICARE, OTHER ==
--- NOTE | 2022-08-13 15:30 | MR ---
EXAMINATION TYPE: MR iac wo con DATE OF EXAM: 08/13/2022 COMPARISON: NONE HISTORY: Headache, right side hearing loss and pain TECHNIQUE: Multiplanar, multisequence imaging of the brain and brainstem is performed without IV cont rast. Acoustic nerve disorder protocol. IV contrast could not be given due to inability to obtain IV access despite several attempts. FINDINGS: Diffusion weighted images demonstrate no evidence of a recent infarct or other diffusion abnormality. There is mild ventricular and sulcal prominence. Some scattered foci of T2 hyperintensity are seen th roughout the superficial, deep, and periventricular white matter. Approximately 40 scattered lesions are evident. Midline structures demonstrate normal morphology. The craniocervical junction appears within normal limits. Normal vascular flow voids are present. Incidental dominant right vertebral artery. Mild to m oderate mucosal thickening involving ethmoid sinuses bilaterally. The globes are intact bilaterally. No suspicious opacification of the mastoid air cells bilaterally. The vestibulocochlear complexes marco ear symmetric. No obvious lesion on noncontrast images. IMPRESSION: Mild diffuse cerebral atrophy and mild to moderate nonspecific white matter changes may b e on basis of altered vascular mechanics related to product of migraine headaches and/or chronic smal l vessel ischemic change. No obvious mass in the cerebellopontine angle bilaterally
== END | disposition home or self-care (01) ==
LOC: RADMRIMAIN 13:47
PROVIDERS: ATTEND Otolaryngology
DX: G31.9 Degenerative disease of nervous system, unspecified (principal)
CPT/HCPCS: 70551

== ENCOUNTER 2023-06-04 14:54 | Emergency (ER) | payer MEDICARE, OTHER ==
[2023-06-04 15:12] VITALS: RESP 16; TEMP 97.8
--- NOTE | 2023-06-04 17:00 | ED ---
Eye Problem HPI - General Chief complaint: Eye Problems Stated complaint: LEFT EYE CATARACT SURGERY ISSUES Time Seen by Provider: 06/04/23 16:15 Source: patient Mode of arrival: ambulatory Limitations: no limitations - History of Present Illness Initial comments: Patient is a 73-year-old male who presents the emergency department for eye problems. Patient had cataract surgery of the left eye on 05/[address] Cornelius. Last week he believes he may have had 1 flash in the left eye. Today he reports "a hundred black dots" that appear far away. He denies any additional flashes. Denies injury to the eye. Denies eye pain and redness. No blurry vision or double vision - Related Data Home Medications Medication Instructions Recorded Confirmed Metoprolol Tartrate [Lopressor] 50 mg PO DAILY 09/13/16 08/20/19 amLODIPine [Norvasc] 5 mg PO DAILY 09/13/16 08/20/19 lisinopriL 40 mg PO DAILY 09/13/16 08/20/19 Apixaban [Eliquis] 5 mg PO BID 08/15/19 08/20/19 Morphine Sulfate 15 mg PO TID 08/15/19 08/20/19 clonazePAM [KlonoPIN] 0.5 mg PO DAILY 08/15/19 08/20/19 Allergies Allergy/AdvReac Type Severity Reaction Status Date / Time No Known Allergies Allergy Verified 08/15/19 14:36 Review of Systems ROS Statement: Those systems with pertinent positive or pertinent negative responses have been documented in the HPI. ROS Other: All systems not noted in ROS Statement are negative. Past Medical History Past Medical History: Deep Vein Thrombosis (DVT), Hypertension, Liver Disease Additional Past Medical History / Comment(s): hx DVT rt leg, SOB with activity,hx of Hepatits B & C, hx migraines, herniated and ruptured disks, chronic back pain, History of Any Multi-Drug Resistant Organisms: None Reported Past Surgical History: Cholecystectomy Additional Past Surgical History / Comment(s): liver bx Past Anesthesia/Blood Transfusion Reactions: No Reported Reaction Past Psychological History: Anxiety, Depression Smoking Status: Former smoker Past Alcohol Use History: None Reported Past Drug Use History: None Reported - Past Family History Mother Family Medical History: No Reported History General Exam Limitations: no limitations General appearance: alert Eye exam: Present: normal appearance, PERRL, EOMI. Absent: scleral icterus, conjunctival injection, periorbital swelling Pupils: Present: normal accommodation Respiratory exam: Present: normal lung sounds bilaterally. Absent: respiratory distress, wheezes, rales, rhonchi, stridor Cardiovascular Exam: Present: regular rate, normal rhythm, normal heart sounds. Absent: systolic murmur, diastolic murmur, rubs, gallop, clicks Neurological exam: Present: alert Psychiatric exam: Present: normal affect, normal mood Skin exam: Present: warm, dry, intact, normal color. Absent: rash Course Vital Signs 06/04/23 06/04/23 15:09 17:10 Temperature 97.8 F Pulse Rate 92 70 Respiratory 16 16 Rate Blood Pressure 130/89 131/90 O2 Sat by Pulse 98 98 Oximetry Medical Decision Making - Medical Decision Making Was pt. sent in by a medical professional or institution (, PA, INTERIOR DECORATOR PAINTING, urgent care, hospital, or intermediate...) When possible be specific @ -No Did you speak to anyone other than the patient for history (EMS, parent, family, police, friend...)? What history was obtained from this source @ -No Did you review nursing and triage notes (agree or disagree)? Why? @ -I reviewed and agree with nursing and triage notes Were old charts reviewed (outside hosp., previous admission, EMS record, old EKG, old radiological studies, urgent care reports/EKG's, intermediate records)? Report findings @ -No old charts were reviewed Differential Diagnosis (chest pain, altered mental status, abdominal pain women, abdominal pain men, vaginal bleeding, weakness, fever, dyspnea, syncope, headache, dizziness, GI bleed, back pain, seizure, CVA, palpatations, mental health)? @ -glaucoma, Retinal detachment, retinal tear, vitreous detachment, vitreous hemorrhage posterior uveitis-this is not meant to be all-inclusive EKG interpreted by me (3pts min.). @ -As above X-rays interpreted by me (1pt min.). @ -None done CT interpreted by me (1pt min.). @ -None done U/S interpreted by me (1pt. min.). @ -None done What testing was considered but not performed or refused? (CT, X-rays, U/S, labs)? Why? @ -None What meds were considered but not given or refused? Why? @ -None Did you discuss the management of the patient with other professionals (professionals i.e. DrBurak, PA, INTERIOR DECORATOR PAINTING, lab, RT, psych nurse, social science instructor, homicide squad commanding officer, teacher, second officer, casework supervisor)? Give summary @ -No Was smoking cessation discussed for >3mins.? @ -No Was critical care preformed (if so, how long)? @ -No Were there social determinants of health that impacted care today? How? (Homelessness, low income, unemployed, alcoholism, drug addiction, ibarra sportation, low edu. Level, literacy, decrease access to med. care, snf, rehab)? @ -No Was there de-escalation of care discussed even if they declined (Discuss DNR or withdrawal of care, Hospice)? DNR status @ -No What co-morbidities impacted this encounter? (DM, HTN, Smoking, COPD, CAD, Cancer, CVA, ARF, Chemo, Hep., AIDS, mental health diagnosis, sleep apnea, morbid obesity)? @ -None Was patient admitted / discharged? Hospital course, mention meds given and route, prescriptions, significant lab abnormalities, going to OR and other pertinent info. @ -Patient presenting floaters in left eye. Visual acuity is 20/20 bilateral, 20/25 left eye, 20/25 right eye. PERRL. No conjunctival injection. No gross abnormalities on funduscopic exam. Average IOP is 15. I performed ultrasound which ruled out retinal detachment. Case discussed with Dr. North who is c omfortable with discharge and follow-up in the office on Tuesday. We discussed return parameters Undiagnosed new problem with uncertain prognosis? @ -No] Drug Therapy requiring intensive monitoring for toxicity (Heparin, Nitro, Insulin, Cardizem)? @ -[No] Were any procedures done? @ -Yes, ultrasound Diagnosis/symptom? @ Eye problems Acute, or Chronic, or Acute on Chronic? @ -Acute Uncomplicated (without systemic symptoms) or Complicated (systemic symptoms)? @ -Uncomplicated Side effects of treatment? @ -[No] Exacerbation, Progression, or Severe Exacerbation? @ -[No] Poses a threat to life or bodily function? How? (Chest pain, [place], [place], pneumonia, PE, COPD, DKA, ARF, appy, cholecystitis, CVA, Diverticulitis, Homicidal, Suicidal, threat to staff... and all critical care pts) @ -[No] Dr. Biswas is my attending Disposition Clinical Impression: Eye problems Disposition: HOME SELF-CARE Condition: Good Instructions (If sedation given, give patient instructions): Visual Floaters (ED) Additional Instructions: Follow-up with Dr. Cornelius on Tuesday. Return to the emergency department experience new, concerning, or worsening symptoms, including not limited to eye flashes or increased floaters, eye pain, blurry vision. Is patient prescribed a controlled substance at d/c from ED?: No Referrals: Bruno Christianson MD [Primary Care Provider] - 1-2 days
[2023-06-04 17:11] VITALS: BP 131/90; PULSE 70
== END 2023-06-04 17:11 | disposition home or self-care (01) ==
LOC: EC 14:54
DX: H59.092 Other disorders of the left eye following cataract surgery (principal); I10 Essential (primary) hypertension; Z86.718 Personal history of other venous thrombosis and embolism; F41.9 Anxiety disorder, unspecified; F32.A Depression, unspecified; Z87.891 Personal history of nicotine dependence; Z79.01 Long term (current) use of anticoagulants; Z79.899 Other long term (current) drug therapy
CPT/HCPCS: 99283

== ENCOUNTER → 2023-08-10 | Outpatient (CLI) | payer MEDICARE, OTHER ==
[2023-08-10 16:25] LABS: Chol/HDL Ratio 3.25 Ratio; LDL Cholesterol,Calculated 104.6 mg/dL (0.0-131.0)
[2023-08-10 16:29] LABS: HCT 51.4 % (39.6-50.0); HGB 17.3 d/dL (13.0-17.0); MCH 30.7 pg (27.0-32.0); MCHC 33.7 d/dL (32.0-37.0); MCV 91.1 FL (80.0-97.0); Mean Platelet Volume 10.3 FL (9.5-12.2); NRBC Per 100 WBC 0 X 10*3/uL (0.00-0.01); Platelet Count 236 X 10*3/uL (140-440); RBC 5.64 X 10*6/uL (4.40-5.60); RDW 12.3 % (11.5-14.5)
[2023-08-10 16:36] LABS: ALT 20 U/L (10-49); AST 23 U/L (14-35); Albumin 4.8 d/dL (3.8-4.9); Alkaline Phosphatase 72 U/L (41-126); BUN/Creat Ratio 13.25 Ratio (12.00-20.00); Blood Urea Nitrogen 15.9 mg/dL (9.0-27.0); Calcium 9.9 mg/dL (8.7-10.3); Chloride 99 mmol/L (96-109); Globulin 3.2 d/dL (1.6-3.3); Glucose 114 mg/dL (70-110); Potassium 4.2 mmol/L (3.5-5.5); Sodium 139 mmol/L (135-145); Total Bilirubin 0.8 mg/dL (0.3-1.2)
== END | disposition home or self-care (01) ==
LOC: LABWHC1 10:48
PROVIDERS: ATTEND Internal Medicine
DX: I10 Essential (primary) hypertension (principal); E03.9 Hypothyroidism, unspecified
CPT/HCPCS: 36415; 80053; 80061; 84443; 85027

== ENCOUNTER 2025-05-09 07:40 | Day surgery (SDC) | payer MEDICARE, OTHER ==
[2025-05-09 08:11] VITALS: TEMP 98.7
[2025-05-09] MEDS: LACTATED RINGERS 1,000 ML IV SCH (08:15)
[2025-05-09] MEDS: IV FLUID CONTINUATION 1,000 ML IV ONE (09:09)
[2025-05-09] MEDS ORDERED: PROPOFOL 10 MG/ML 20 ML VIAL IV ONE (09:16)
--- NOTE | 2025-05-09 09:21 | P.GSHP ---
History of Present Illness H&P Date: 05/09/25 Chief Complaint: Positive Cologuard test Is a 74-year-old male presents today for a colonoscopy. Patient has a positive Cologuard test. Past Medical History Past Medical History: Deep Vein Thrombosis (DVT), Hypertension, Liver Disease Additional Past Medical History / Comment(s): hx DVT rt leg, SOB with activity,hx of Hepatits B & C, hx migraines, herniated and ruptured disks, chronic back pain, History of Any Multi-Drug Resistant Organisms: None Reported Past Surgical History: Cholecystectomy Additional Past Surgical History / Comment(s): liver bx shukri cataracts removed Past Anesthesia/Blood Transfusion Reactions: No Reported Reaction Smoking Status: Former smoker, Vaper - Past Family History Mother Family Medical History: No Reported History Medications and Allergies Home Medications Medication Instructions Recorded Confirmed Type Metoprolol Tartrate [Lopressor] 50 mg PO DAILY 09/13/16 05/03/25 History amLODIPine [Norvasc] 5 mg PO DAILY 09/13/16 05/03/25 History Apixaban [Eliquis] 5 mg PO BID 08/15/19 05/03/25 History ALPRAZolam [Xanax] 0.5 mg PO BID PRN 05/03/25 05/03/25 History Gabapentin [Neurontin] 200 mg PO DAILY PRN 05/03/25 05/03/25 History Oxycodone-Acetaminophen 10 mg PO TID PRN 05/03/25 05/03/25 History Spironolactone-Hctz 25-25Mg 1 each PO DAILY 05/03/25 05/03/25 History [Aldactazide 25-25Mg] Allergies Allergy/AdvReac Type Severity Reaction Status Date / Time No Known Allergies Allergy Verified 05/09/25 08:06 Surgical - Exam Vital Signs Temp Pulse Resp BP Pulse Ox 98.7 F 112 H 16 132/104 99 05/09/25 08:09 05/09/25 08:09 05/09/25 08:09 05/09/25 08:09 05/09/25 08:09 - General well developed, well nourished, no distress - Eyes PERRL - ENT normal pinna - Neck no masses - Respiratory normal expansion - Cardiovascular Rhythm: regular - Abdomen Abdomen: soft, non tender Assessment and Plan Assessment: Positive Cologuard test. Will perform colonoscopy.
--- NOTE | 2025-05-09 09:41 | P.OP ---
Date of Procedure: 05/09/25 Preoperative Diagnosis: Positive Cologuard test Postoperative Diagnosis: Right colon polyp Procedure(s) Performed: Colonoscopy Anesthesia: MAC Surgeon: Elvis Valenzuela Pathology: other (Right colon polyp) Condition: stable Disposition: PACU Description of Procedure: The patient is placed on the endoscopy table in the lateral position. He received IV sedation. Digital rectal exam was performed. This revealed no abnormality. Flexible colonoscope was then placed patient anus and passed throughout the entire colon. In the cecum there is a large amount liquid stool which limited the view of the mucosa. In the right colon there was a pedunculated polyp. This removed with a combination of the snare and forcep. The scope was withdrawn and the Mainer of the right colon appeared normal. The transverse colon, descending colon and sigmoid colon appeared normal except for few scattered diverticuli. The scope was Ruback the rectum this appeared normal. Scope withdrawn the patient.
[2025-05-09 09:59] VITALS: BP 135/95; PULSE 85; RESP 18
== END 2025-05-09 10:33 | disposition home or self-care (01) ==
LOC: ORWHC2ENDO 07:40
PROVIDERS: ATTEND Surgery
DX: Z12.11 Encounter for screening for malignant neoplasm of colon (principal); D12.2 Benign neoplasm of ascending colon; K57.30 Diverticulosis of large intestine without perforation or abscess without bleeding; I10 Essential (primary) hypertension; K76.9 Liver disease, unspecified; G43.909 Migraine, unspecified, not intractable, without status migrainosus; G89.29 Other chronic pain; Z79.01 Long term (current) use of anticoagulants; Z79.899 Other long term (current) drug therapy; Z87.891 Personal history of nicotine dependence; Z86.718 Personal history of other venous thrombosis and embolism; Z86.19 Personal history of other infectious and parasitic diseases
CPT/HCPCS: 88305; 45380; 45385; J2704